=== PATIENT | male | born 1955 | race Caucasian/White ===

== ENCOUNTER → 2016-09-10 | Outpatient (CLI) | payer OTHER, MEDICARE, SELFPAY ==
[~2016-09-10] MED LIST: AZO URINARY P97.5 MG; BENICAR40 MG PO; BYSTOLIC5 MG PO; COLACE100 MG PO; CPAP INH; DITROPAN XL5 MG PO; FLOMAX0.4 MG PO; IBUPROFEN200 M1 PO; NORCO 5-325 TA1 EACH PO
--- NOTE | ~2016-09-10 | PUL ---
PATIENT'S NAME: EMMA PARKER [facility] AGE: 61 Y [address] ROOM: [place] [address] LOCATION: [facility] ADMIT DATE: 09/10/2016 Pulmonary DISCHARGE DATE: FAMILY PHYSICIAN: DINAH BAKER MD ATTENDING PHYSICIAN: ANGEL BOLAND NAME OF PROCEDURE: Pulmonary Function Test DATE OF PROCEDURE: September 10, 2016 TECH: ELLI Powers REASON FOR EXAM: COPD RESULTS: 1. FVC was 1.93 liters which is 47% of predicted and low, FEV1 was 1.03 liters which is 33% of predicted and low, and FEV1/FVC was 54% and low. The flow volume curve revealed significant airflow limitation. After bronchodilator administration FVC increased to 1.97 liters which is a 2% increase and FEV1 increased to 1.12 liters which is a 9% increase. FEV1/FVC was 57%. 2. DLCO was 13.1 with an adjusted DLCO of 12.3 which is 51% of predicted and low. 3. Total lung capacity was 6.01 liters which is 105% of predicted and normal, and residual volume was 4.07 liters which is 194% of predicted and high. PHYSICIAN INTERPRETATION: The patient has very severe airflow limitation without a significant bronchodilator response. His diffusion capacity is moderately low. There is evidence of significant air trapping on lung volumes. ANGEL BOLAND MD RFBlanco/jaquan /[id number] dtt: 09/11/16 0630 , ANGEL BOLAND dtd: 09/11/16 0614
== END | disposition disaster alternative care site (69) ==
LOC: GRTH 13:00
DX: J44.9 Chronic obstructive pulmonary disease, unspecified (principal)

== ENCOUNTER → 2016-09-15 | Outpatient (CLI) | payer OTHER, MEDICARE ==
[2016-09-15 13:45] LABS: BASOPHIL % 0.4 %; EOSINOPHIL # 0.2 K/uL (0.0-0.5); EOSINOPHIL % 2.6 %; IMMATURE GRANULOCYTE % 0.3 %; LYMPHOCYTE # 1.9 K/uL (0.8-4.0); LYMPHOCYTE % 24.5 %; MCH 31.5 pg (27.0-34.0); MCV 92.8 fl (83.0-98.0); MONOCYTE # 0.6 K/uL (0.0-1.0); MONOCYTE % 8.4 %; MPV 10.5 fl (9.4-12.4); NEUTROPHIL # (ANC) 4.8 K/uL (1.4-9.0); NEUTROPHIL % 63.8 %; NRBC % 0 /100WBC (0-0.00); PLATELET COUNT 168 K/uL (150-450); RBC 5.39 M/uL (3.50-5.50); WBC 7.6 K/uL (4.0-11.0)
[2016-09-15 13:45] LABS: BICARBONATE 29.2 mmol/L (18.0-23.0); PCO2 43 mmHg (35-45); PO2 54 mmHg (80-90)
== END | disposition disaster alternative care site (69) ==
LOC: GLAB 13:25
PROVIDERS: Physician Assistant
DX: J44.9 Chronic obstructive pulmonary disease, unspecified (principal)

== ENCOUNTER → 2016-09-24 | Outpatient (CLI) | payer OTHER, MEDICARE | END | disposition disaster alternative care site (69) | LOC: GRAD 13:25 | DX: R10.9 Unspecified abdominal pain (principal); N20.0 Calculus of kidney; S22.31XA Fracture of one rib, right side, initial encounter for closed fracture; X58.XXXD Exposure to other specified factors, subsequent encounter ==

== ENCOUNTER → 2016-10-05 | Outpatient (CLI) | payer OTHER, MEDICARE ==
--- NOTE | ~2016-10-05 | PUL ---
PATIENT'S NAME: EMMA PARKER [facility] AGE: 61 Y [address] ROOM: [place] [address] LOCATION: [facility] ADMIT DATE: 10/05/2016 Pulmonary DISCHARGE DATE: FAMILY PHYSICIAN: DINAH BAKER MD ATTENDING PHYSICIAN: ANGEL BOLAND NAME OF PROCEDURE: Sleep Study PROCEDURE DATE: October 05, 2016 TECH: FREDRICK Pabon TEST #: [facility] – [place]# [id number] TECHNICAL PARAMETERS: The patient was studied using International 10/20 measuring system. While the patient was studied, there was continuous monitoring of EEG (8 leads), EOG (2 leads), EKG (3 leads), submental EMG (3 leads), tibial (4 leads), respiratory inductive plethysmography (RIP) for thoracic and abdominal effort, oral and nasal airflow with a thermocouple and pressure transducer, and oximetry. The photographic reproduction technician also performed visual and auditory observations noting things like body position, patient's status, breath sounds, artifact, snoring level and patient comments. Continuous sound was monitored using a 2-way speaker system and video monitoring was performed using an infrared camera. Review of the entire study was performed epoch by epoch utilizing a single epoch and multiple epoch capability sleep system. MEDICAL HISTORY: The patient is a 61-year-old overweight gentleman with daytime sleepiness and snoring. SLEEP STAGE SUMMARY: The patient was studied for 499 minutes of which he slept 286 minutes. He fell asleep in 57 minutes and slept for 57% of the night. Sleep architecture revealed a decline in slow wave and REM sleep. RESPIRATORY SUMMARY: Oxygen saturations ranged from 89 to 92%. This study was done to titrate CPAP which was started at 8 cm and titrated to 12 cm with good control of the respiratory events. EKG SUMMARY: No dysrhythmias were noted. LIMB MOVEMENT SUMMARY: No clinically relevant periodic limb movements were noted. SUMMARY: Obstructive sleep apnea responsive to CPAP at 12 cm without supplemental oxygen. PATIENT'S NAME: EMMA PARKER [facility] AGE: 61 Y [address] ROOM: [place] [address] LOCATION: [facility] ADMIT DATE: 10/05/2016 Pulmonary DISCHARGE DATE: FAMILY PHYSICIAN: DINAH BAKER MD ATTENDING PHYSICIAN: ANGEL BOLAND PLAN: Suggest CPAP at 12 cm. The patient will receive results from the ordering provider. MD REGGIE LEDESMA /[id number] dtt: 10/26/16 1429 , Cliff Humphries. dtd: 10/13/16 1409
== END | disposition disaster alternative care site (69) ==
LOC: GSLP 20:11
DX: G47.33 Obstructive sleep apnea (adult) (pediatric) (principal)

== ENCOUNTER → 2016-10-06 | Day surgery (SDC) | payer OTHER, MEDICARE ==
[~2016-10-06] VITALS: Ht 167.6 cm; Wt 92.1 kg
--- NOTE | ~2016-10-06 | HP ---
PATIENT'S NAME: EMMA PARKER [facility] AGE: 61 Y [address] ROOM: [place] [address] LOCATION: [facility] [place] ADMIT DATE: 10/06/2016 History & Physical DISCHARGE DATE: FAMILY PHYSICIAN: DINAH BAKER MD ATTENDING PHYSICIAN: BETTY DELACRUZ DATE OF SERVICE: CHIEF COMPLAINT: Left flank pain. HISTORY OF PRESENT ILLNESS: The patient is a pleasant 61-year-old male, who had recently presented with abdominal pain and underwent a CT scan of his abdomen and pelvis on September 24, 2016, with findings including a large 1.8 cm left renal pelvis stone. There were also several smaller 1 to 2 mm stones, more peripherally in the collecting system in the left kidney. The patient denies any previous history of nephrolithiasis. The patient denies any fevers or chills. He denies any nausea or vomiting. He was having worsening pain over the last several days. He has no further questions or concerns at this time. PAST MEDICAL HISTORY: 1. Hypertension. 2. COPD. 3. Nephrolithiasis. PAST SURGICAL HISTORY: Denies any previous surgical history. MEDICATIONS: See hospitalization medication reconciliation. FAMILY HISTORY: The patient denies any known family history of genitourinary abnormalities. SOCIAL HISTORY: The patient is an active smoker and smokes 6 to 10 cigarettes per day. He does drink alcohol on occasion. ALLERGIES: NO KNOWN DRUG ALLERGIES. REVIEW OF SYSTEMS: A full 10+ point review of systems was performed with pertinent positive and negative findings included in the history of present illness. All other PATIENT'S NAME: EMMA PARKER [facility] AGE: 61 Y [address] ROOM: [place] [address] LOCATION: [facility] [place] ADMIT DATE: 10/06/2016 History & Physical DISCHARGE DATE: FAMILY PHYSICIAN: DINAH BAKER MD ATTENDING PHYSICIAN: BETTY DELACRUZ systems were reviewed and are otherwise negative. PHYSICAL EXAMINATION: VITAL SIGNS: Stable. The patient's height is 65.5 inches and his weight is 213 pounds. CONSTITUTIONAL: No acute distress. Hemodynamically stable. HEENT: Extraocular muscles intact. Mucous membranes moist. No drainage per ears and nose. CARDIAC: Good peripheral perfusion. Respiratory: No audible wheezing or stridor. ABDOMEN: Soft, nontender, and nondistended. MUSCULOSKELETAL: Moves all extremities. HEMATOLOGIC: No active sites of bruising or bleeding. NEUROLOGIC: No focal deficits noted. PSYCHIATRIC: Normal affect and answers questions appropriately. IMAGING: I personally reviewed the images from his recent CT scan consistent with findings noted above in history of present illness. IMPRESSION: Left nephrolithiasis. PLAN: I had a long discussion today with the patient regarding my findings. We discussed his treatment options for large left renal stone including extracorporeal shock wave lithotripsy, ureteroscopy with laser lithotripsy, and stent placement, versus percutaneous nephrostolithotomy. We discussed risks, benefits, indications, and alternatives. At this point, the patient would like to proceed with left extracorporeal shockwave lithotripsy. Given the size of the stone, I recommended concurrent cystoscopy and placement of an indwelling left ureteral stent. His questions and concerns were addressed, and he has no further at this time. BETTY DELACRUZ MD GP/modl /[id number] CC: Dinah Baker MD D: [id number] T: [id number] HISTORY & PHYSICAL
--- NOTE | ~2016-10-06 | OR ---
PATIENT'S NAME: EMMA PARKER [facility] AGE: 61 Y [address] ROOM: [place] [address] [place]: [facility] [place] ADMIT DATE: 10/06/2016 OR/Procedure Report DISCHARGE DATE: FAMILY PHYSICIAN: DINAH RUSSO MD ATTENDING PHYSICIAN: BETTY GARCIA SURGEON: Betty Garcia MD INSULATION BOARD BACK TENDER: None. DATE OF PROCEDURE: 10/06/2016 PREOPERATIVE DIAGNOSIS: Left nephrolithiasis. POSTOPERATIVE DIAGNOSES: 1. Left nephrolithiasis. 2. Benign prostatic hyperplasia. OPERATIONS/PROCEDURES PERFORMED: 1. Cystoscopy with placement of indwelling left ureteral stent. 2. Left extracorporeal shockwave lithotripsy. INDICATIONS FOR PROCEDURE: The patient is a pleasant, 61-year-old male, who had recently presented with abdominal pain and was found to have a 1.8 cm left renal pelvis stone, as well as several smaller nonobstructing nephrolithiasis. The patient was explained the risks, benefits, indications, and alternatives to above procedure and wished to proceed and consented freely. DESCRIPTION OF OPERATION: The patient was brought back to the operating room, where he was placed on the OR table in the supine position. A surgical time- out was called where the patient identification, surgical site, and procedure was then verified. We also did verify that the patient received an IV Levaquin antibiotic within an hour of beginning the procedure. The patient was then moved and placed in a low lithotomy position, where he was then prepped and draped in the usual sterile fashion. Again, the patient did undergo successful administration of monitored anesthesia care. I then carefully advanced the rigid cystoscope easily into the patient's urinary bladder. His anterior urethra was within normal limits. His posterior urethra was notable for [id number] bilobar hyperplasia of the prostate with a mildly high-riding bladder neck. Upon entry into his bladder, full marin cystoscopy was performed. His bladder was negative for any bladder tumors, cellules, or diverticula. His ureteral orifices were noted to be in their orthotopic location. He did have some mild bladder trabeculation consistent with early signs of bladder outlet obstruction. I then carefully cannulated the patient's left ureteral orifice with a Sensor guidewire and advanced the wire up to the patient's left renal collecting system. Then, over the wire, I advanced a 4.8-Cambodian multi-length ureteral stent deploying it, noting the good curl fluoroscopically in the patient's left renal pelvis, as well as a PATIENT'S NAME: EMMA PARKER [facility] AGE: 61 Y [address] ROOM: [place], [place] [address] LOCATION: [facility] [place] ADMIT DATE: 10/06/2016 OR/Procedure Report DISCHARGE DATE: FAMILY PHYSICIAN: DINAH RUSSO MD ATTENDING PHYSICIAN: BETTY GARCIA good curl visually in the patient's bladder. I then emptied the patient's bladder. The patient was then taken out of the lithotomy position where he was transferred over to the recovery bed and transported over to the lithotripsy treatment bed and placed in the supine position. I then brought the left renal stone into focal point using fluoroscopy. Shockwave lithotripsy was performed starting at 14 kilovolts and working up sequentially up to 24 kilovolts in energy. Approximately, 3000 shocks were delivered to the stone. It appeared that we had nice fragmentation by fluoroscopic monitoring. The patient was then awoken from monitored anesthesia care where he was then transferred over to the recovery bed and transported to the recovery room in good condition. COMPLICATIONS: None. DRAINS: Indwelling 4.8-Cambodian multi-length left ureteral stent. SPECIMENS: None. ESTIMATED BLOOD LOSS: Minimal. FOLLOWUP PLAN: We will plan to have the patient follow up in 3 weeks with a plain film KUB and possible stent removal at that time if no large residual fragments remain on imaging. We will also discuss his options for his BPH at that time including pharmacologic therapy, observation, or interventions including UroLift procedure, transurethral resection of prostate, or photovaporization of the prostate. BETTY GARCIA MD GP/modl /[id number] CC: Dinah Russo MD d: 10/07/16 0005 t: 10/08/16 1834, OPERATIVE SUMMARY
[2016-10-06 15:35] LABS: BASOPHIL % 0.4 %; EOSINOPHIL # 0.2 K/uL (0.0-0.5); EOSINOPHIL % 2.8 %; HEMATOCRIT 49.4 % (37.0-53.0); IMMATURE GRANULOCYTE % 0.4 %; LYMPHOCYTE # 1.7 K/uL (0.8-4.0); LYMPHOCYTE % 22.1 %; MCH 31.8 pg (27.0-34.0); MCHC 34.4 gm/dL (32.0-36.5); MCV 92.3 fl (83.0-98.0); MONOCYTE # 0.7 K/uL (0.0-1.0); MPV 10.4 fl (9.4-12.4); NEUTROPHIL # (ANC) 4.9 K/uL (1.4-9.0); NEUTROPHIL % 65.3 %; NRBC % 0 /100WBC (0-0.00); PLATELET COUNT 190 K/uL (150-450); RBC 5.35 M/uL (3.50-5.50); RDW-CV 13.4 % (11.9-14.6); WBC 7.5 K/uL (4.0-11.0)
[2016-10-06 15:52] LABS: ALBUMIN 3.7 gm/dL (3.5-5.0); ALK PHOS 70 IU/L (33-138); ALT 24 IU/L (12-78); ANION GAP 9.8 (10.0-19.0); AST 17 IU/L (10-40); BLOOD UREA NITROGEN 12 mg/dL (6-24); CALCIUM 8.6 mg/dL (8.5-10.5); CHLORIDE 108 mMol/L (96-110); CO2 27 mMol/L (22-32); CREATININE 0.9 mg/dL (0.6-1.3); ESTIMATED GFR (MDRD EQUATION) > 60; POTASSIUM 3.8 mMol/L (3.7-5.1); SODIUM 141 mMol/L (135-145); TOTAL BILIRUBIN 0.9 mg/dL (0.0-1.5); TOTAL PROTEIN 6.7 g/dL (6.0-8.4)
== END | disposition disaster alternative care site (69) ==
LOC: GPOC 10-05 17:00 → GSDC 14:19
PROVIDERS: Urology
PROC: 0T778DZ Dilation of Left Ureter with Intraluminal Device, Via Natural or Artificial Opening Endoscopic (ICD-10-PCS; principal; 2016-10-06)
PROC: 0TF4XZZ Fragmentation in Left Kidney Pelvis, External Approach (ICD-10-PCS; 2016-10-06)
DX: N20.0 Calculus of kidney (principal); N40.0 Benign prostatic hyperplasia without lower urinary tract symptoms; M19.90 Unspecified osteoarthritis, unspecified site; I10 Essential (primary) hypertension; G47.30 Sleep apnea, unspecified; F17.210 Nicotine dependence, cigarettes, uncomplicated; Z99.89 Dependence on other enabling machines and devices; Z79.899 Other long term (current) drug therapy; J43.9 Emphysema, unspecified
CPT/HCPCS: C1769; C2617; J1100; J1956; J2001; J2405; J7030

== ENCOUNTER → 2016-11-02 | Outpatient (CLI) | payer OTHER, MEDICARE | END | disposition disaster alternative care site (69) | LOC: GRAD 13:53 | DX: N20.0 Calculus of kidney (principal); M41.9 Scoliosis, unspecified; Z96.0 Presence of urogenital implants ==

== ENCOUNTER → 2016-12-04 | Outpatient (CLI) | payer OTHER, MEDICARE | END | disposition disaster alternative care site (69) | LOC: GRAD 14:48 | DX: N20.0 Calculus of kidney (principal); M41.9 Scoliosis, unspecified; I70.90 Unspecified atherosclerosis ==